=== PATIENT | female | born 1990 | race Caucasian/White ===

== ENCOUNTER 2018-10-13 14:53 | Emergency (ER) | payer BC, OTHER ==
[~2018-10-13] VITALS: Ht 167.6 cm; Wt 75.5 kg
[~2018-10-13 14:53] MED LIST: CLON1TAB PO
[2018-10-13 15:01] VITALS: BP 118/72
--- NOTE | 2018-10-13 15:07 | NUR ---
Patient ambulated to bed 6 with family. RN evaluating patient at bedside.
--- NOTE | 2018-10-13 15:16 | NUR ---
27 Y FEMALE C/O RLQ ABD PAIN X2 DAYS. PT REPORTS INTERMITENT CRAMPING IN RLQ AT 4/10 ALONG WITH LOWER BACK ACHES. PT REPORTS VAGINAL BLEEDING ON SATURDAY AND REPORTS SPOTTY BLEEDING TODAY WITH BLOOD CLOTS. + N/V. PT DENIES UTI SYMPTOMS OR FEVER. PT 8 WEEKS , LMP 08/18/18, RAFAELA 05/25/19, . PT WAS SEEN AT [facility] SATURDAY, FOR VAGINAL BLEEDING. US WAS DONE. WAS TOLD THERE WAS NO HEARTBEAT. VSS AT THIS TIME. PT AA0X4. BED IS DOWN, LOCKED, BED RAIL X 1, ERMD TO SEE PT. MEDHX:DENIES RX:PRENATALS
--- NOTE | 2018-10-13 15:32 | NUR ---
PT AMB TO RESTROOM FOR URINE SAMPLE WITH STEADY GAIT
--- NOTE | 2018-10-13 16:13 | NUR ---
PT AMB TO RESTROOM WITH STEADY GAIT.
--- NOTE | 2018-10-13 16:23 | NUR ---
DR DENNY AT PT BEDSIDE FOR EVALUATION
--- NOTE | 2018-10-13 16:34 | NUR ---
lab at bedside
--- NOTE | 2018-10-13 16:57 | NUR ---
VS COMPLETED BY SUKH POWER. VSS AT THIS TIME. AA0X4.
--- NOTE | 2018-10-13 17:01 | NUR ---
US AT BEDSIDE
[2018-10-13 17:07] LABS: BASOPHILS % (AUTO) 0.3 % (0.0-2.0); EOSINOPHILS # (AUTO) 0.1 K/uL (0-0.4); EOSINOPHILS % (AUTO) 0.6 % (0.0-4.0); HEMATOCRIT 39.1 % (36-48); HEMOGLOBIN 13.2 g/dL (12.0-16.0); LYMPHOCYTES # (AUTO) 1.7 K/uL (2.5-16.5); LYMPHOCYTES % (AUTO) 16.8 % (20.5-51.1); MEAN CORPUSCULAR HEMOGLOBIN 31 pg (27-31); MEAN CORPUSCULAR HGB CONC 34 g/dL (33-37); MONOCYTES # (AUTO) 0.7 K/uL (0.8-1.0); MONOCYTES % (AUTO) 6.9 % (1.7-9.3); NEUTROPHILS # (AUTO) 7.6 K/uL (1.8-7.7); NEUTROPHILS % (AUTO) 75.4 % (42.2-75.2); PLATELET COUNT (AUTO) 208 K/uL (140-450); RED BLOOD CELL COUNT(AUTO) 4.25 MIL/uL (4.20-5.40); RED CELL DISTRIBUTION WIDTH 13.1 % (11.6-13.7); WHITE BLOOD COUNT (AUTO) 10.1 K/uL (4.8-10.8)
--- NOTE | 2018-10-13 17:17 | NUR ---
Dr. Vickers evaluating patient at bedside.
[2018-10-13 17:22] LABS: ALBUMIN 3.4 g/dL (3.4-5.0); ANION GAP 8.4 (8-16); CARBON DIOXIDE 29.1 mmol/L (21-32); CREATININE 0.6 mg/dL (0.6-1.3); POTASSIUM 3.5 mmol/L (3.5-5.1); TOTAL BILIRUBIN 0.1 mg/dL (0.0-1.0)
--- NOTE | 2018-10-13 17:49 | NUR ---
SPEAKING WITH PT AND ---LAB RESULTS PRINTED AND HANDED TO PT.Patient discharged with v/s stable. Written and verbal after care instructions given and explained. Patient verbalized understanding. Ambulatory with steady gait. All questions addressed prior to discharge. Advised to follow up with PMD.
[2018-10-13 17:50] VITALS: BP 123/70
== END 2018-10-13 17:50 | disposition home or self-care (01) ==
LOC: MED 14:53
DX: O20.8 Other hemorrhage in early pregnancy (principal); O26.891 Other specified pregnancy related conditions, first trimester; R10.30 Lower abdominal pain, unspecified; Z3A.01 Less than 8 weeks gestation of pregnancy; Z79.899 Other long term (current) drug therapy
CPT/HCPCS: 36415; 76801; 80053; 81002; 81025; 84702; 85025; 86900; 86901; 99284